=== PATIENT | female | born 1970 | race Caucasian/White ===

== ENCOUNTER → 2016-11-15 | Outpatient (CLI) | payer BC ==
--- NOTE | 2016-11-16 11:46 | MM ---
Reason for exam: screening (asymptomatic). Last mammogram was performed 1 year and 7 months ago. History: Patient is nulliparous. Family history of breast cancer in grandmother. Physical Findings: A clinical breast exam by your physician is recommended on an annual basis and results should be correlated with mammographic findings. MG Screening Mammo w CAD Bilateral CC and MLO view(s) were taken. Prior study comparison: April 25, 2015, bilateral MG screening mammo w CAD. January 28, 2014, bilateral MG screening mammo w CAD. The breast tissue is heterogeneously dense. This may lower the sensitivity of mammography. No significant changes when compared with prior studies. ASSESSMENT: Benign, BI-RAD 2 RECOMMENDATION: Routine screening mammogram of both breasts in 1 year.
== END | disposition home or self-care (01) ==
LOC: RADMAMWWP 13:11
PROVIDERS: ATTEND Obstetrics & Gynecology
DX: Z12.31 Encounter for screening mammogram for malignant neoplasm of breast (principal)

== ENCOUNTER → 2017-08-03 | Outpatient (CLI) | payer BC ==
--- NOTE | 2017-08-03 08:15 | US ---
EXAMINATION TYPE: US duplex aorta DATE OF EXAM: 08/03/2017 COMPARISON: NONE CLINICAL HISTORY: R22.1 Pulsatile Mass. Family history aneurysm EXAM MEASUREMENTS: Abdominal Aorta: Proximal: 1.8cm Mid: 1.3cm Distal: 1.3cm Bifurcation:1.5cm IMPRESSION: No evidence for abdominal aortic aneurysm
== END | disposition home or self-care (01) ==
LOC: RADUSWWP 07:24
PROVIDERS: ATTEND Family Medicine
DX: R22.1 Localized swelling, mass and lump, neck (principal)
CPT/HCPCS: 93979

== ENCOUNTER → 2018-11-30 | Outpatient (CLI) | payer BC ==
--- NOTE | 2018-11-30 08:46 | MM ---
Reason for exam: clinical finding. Last mammogram was performed 2 years ago. History: Patient is nulliparous. Family history of breast cancer in grandmother. Physical Findings: Nurse did not find any significant physical abnormalities on exam. MG Diagnostic Mammo w CAD [place] Bilateral CC and MLO view(s) were taken. Prior study comparison: November 15, 2016, bilateral MG screening mammo w CAD. April 25, 2015, bilateral MG screening mammo w CAD. January 28, 2014, bilateral MG screening mammo w CAD. The breast tissue is heterogeneously dense. This may lower the sensitivity of mammography. No suspicious abnormality. No significant new findings when compared with previous films. These results were verbally communicated with the patient and result sheet given to the patient on 11/30/18. ASSESSMENT: Negative, BI-RAD 1 RECOMMENDATION: Routine screening mammogram of both breasts in 1 year.
--- NOTE | 2018-11-30 08:47 | USB ---
Reason for exam: clinical finding. History: Patient is nulliparous. Family history of breast cancer in grandmother. US Breast Limited LT Left limited breast ultrasound including focal area of concern, retroareolar and axilla demonstrates no cystic or solid lesion seen. Multifocal dense tissue. These results were verbally communicated with the patient and result sheet given to the patient on 11/30/18. ASSESSMENT: Negative, BI-RAD 1 RECOMMENDATION: Routine screening mammogram of both breasts in 1 year. Manage patient on a clinical basis.
== END ==
LOC: RADMAMWWP 06:59
PROVIDERS: ATTEND Obstetrics & Gynecology
DX: N63.20 Unspecified lump in the left breast, unspecified quadrant (principal); N63.10 Unspecified lump in the right breast, unspecified quadrant
CPT/HCPCS: 77066

== ENCOUNTER 2019-06-11 08:26 | Day surgery (SDC) | payer BC ==
[2019-06-07 14:17] VITALS: BMI 32.8
[~2019-06-11 08:26] MED LIST: LACTATED RINGERS 1,000 ML IV SCH; LIDOCAINE 1% 20 ML VIAL (10MG/ML) FOR IV START INTRADERMA PRN
[2019-06-11] MEDS ORDERED: MIDAZOLAM 2 MG/2 ML VIAL ONE (08:57)
[2019-06-11] MEDS ORDERED: PROPOFOL 10 MG/ML 20 ML VIAL IV ONE (08:57)
[2019-06-11] MEDS ORDERED: fentaNYL (PF) 50 MCG/ML 2 ML AMP ONE (08:57)
[2019-06-11] MEDS ORDERED: LIDOCAINE 1% INJ 10MG/ML (20 ML MDV) ONE (08:57)
[2019-06-11 09:01] VITALS: TEMP 97
[2019-06-11 09:40] VITALS: RESP 16
--- NOTE | 2019-06-11 09:54 | P.PCN ---
Date of Procedure: 06/11/19 Description of Procedure: Brief history: Patient is a pleasant scheduled for an elective upper endoscopy as well as colonoscopy as a part of evaluation of evaluation of GERD and altered bowel function. Patient reports long-standing history of gastroesophageal reflux disease treated with lansoprazole daily famotidine added at bedtime. Previous EGD was performed as the instrument significant for hiatal hernia. She also reports change in bowel habits with loose watery stools occurring daily. Procedure performed: Esophagogastroduodenoscopy with biopsy Colonoscopy with polypectomy and biopsy Estimated blood loss: Minimal. Preoperative diagnosis: GERD, abdominal pain, change in bowel habits Anesthesia: MAC Procedure: After informed consent was obtained from the patient was brought into the endoscopy unit and IV sedation was administered by anesthesia under continuous monitoring. Initially upper endoscopy was done. The Olympus GF 190 video endoscope was inserted into the mouth and esophagus intubated without any difficulty and was gradually advanced into the stomach and duodenum and carefully examined. The bulb and second part of the duodenum appeared normal, with biopsies taken to rule out celiac disease. The scope was then withdrawn into the stomach adequately insufflated with air and upon careful examination the antrum and body, cardia and fundus appeared normal, with biopsies taken of mild scattered erythema in the antrum and body suggestive of mild gastritis to rule out Helicobacter pylori. The scope was then withdrawn into the esophagus. multiple gastric polyps suggestive of fundic gland polyps were noted with biopsies and a larger polyp removed with cold forcep polypectomy. The GE junction was located at 35 cm to the incisors and biopsied. 2 cm hiatal hernia noted. It appeared regular with no erythema erosions or ulcerations. Rest of the esophagus appeared normal, with mid esophageal biopsies taken in the setting of solid food dysphagia. Patient tolerated the procedure well. At this time the patient continued to remain sedation. Initial digital rectal examination was normal. Olympus CF 190 video colonoscope was then inserted into the rectum and gradually advanced to the cecum without any difficulty. Careful examination was performed as the scope was gradually being withdrawn. The prep was excellent. the terminal ileum appeared normal with biopsies taken. The cecum, ascending colon, transverse colon, descending colon, sigmoid colon and rectum appeared normal., With biopsies taken in the setting of altered bowel function. Diminutive 2 mm descending colon polyp removed with cold forcep polypectomy. Retroflexion was performed in the rectum and no lesions were noted. Patient tolerated the procedure well. Impression: 1. Mild gastritis antrum body, biopsied. Multiple gastric polyps (suggestive of fundic gland polyps) biopsied. Small hiatal hernia. Biopsies of the duodenum, GE junction and midesophagus. 2. Normal appearing colon from the rectum to cecum and normal appearing terminal ileum with random biopsies taken of the terminal ileum, right colon and left colon. Diminutive 2 mm descending colon polyp removed with cold forcep polypectomy. Recommendations: Findings of this examination were discussed with the patient as well as Her partner. Continue current medical management. Await pathology from biopsies and polypectomy. Follow-up in gastroenterology clinic as previously scheduled. Anticipate repeat colonoscopy in 5 years pending pathology from polypectomy.
[2019-06-11 09:55] VITALS: BP 121/86; PULSE 71
--- NOTE | 2019-06-17 07:32 | CDI ---
Outpatient Documentation Clarification Form Date: 06/17/19 CDS/.Cam Milling Machine Operator Name: Anna Montgomery Phone; If any questions, call Marlene Coats at [phone] Patient Name: Luanne Clayton Admit Date: 06/11/19 Discharge Date: 06/11/19 ATTENTION: [facility] Coding Staff appreciate you assistance in clarifying documentation. Please respond to the clarification below the line at the bottom and electronically sign. The [facility] Coding Staff with review the response and follow-up if needed. Please Note: Queries are made part of the Legal Health Record. If you have any questions, please contact the Food Mixer Repairer. Dear Dr. Zamudio, Please provide clarification as to how many polyps were removed and how they were removed. There is mention of a rectal polyp on the pathology report. There is no documentation for this polyp or how it was removed on the procedure note. Please clarify. Thank you for your kind consideration. COMPLETED MTDD
== END 2019-06-11 10:08 ==
LOC: ORWHC2ENDO 08:26
PROVIDERS: ATTEND Internal Medicine
DX: D12.8 Benign neoplasm of rectum (principal); K29.50 Unspecified chronic gastritis without bleeding; K31.7 Polyp of stomach and duodenum; K63.5 Polyp of colon; K44.9 Diaphragmatic hernia without obstruction or gangrene; K21.9 Gastro-esophageal reflux disease without esophagitis; I10 Essential (primary) hypertension; E78.5 Hyperlipidemia, unspecified; F41.9 Anxiety disorder, unspecified; F32.9 Major depressive disorder, single episode, unspecified; G47.33 Obstructive sleep apnea (adult) (pediatric); Z79.899 Other long term (current) drug therapy
CPT/HCPCS: 81025; 88305; 45380; 43239; J2250; J2001; J3010; J2704

== ENCOUNTER → 2022-01-19 | Outpatient (CLI) | payer BC ==
--- NOTE | 2022-01-24 17:54 | MM ---
Reason for Exam: Screening (asymptomatic). Last mammogram was performed 3 year(s) and 2 month(s) ago. Patient History: Menarche at age 18. Patient has no children. Paternal grandmother had breast cancer, left, at or over age 50. Last menstrual period: 01/03/2022 Risk Values: Sierra 5 year model risk: 0.9%. NCI Lifetime model risk: 9.2%. Prior Study Comparison: 04/25/2015 Bilateral Screening Mammogram, [facility]. 11/15/2016 Bilateral Screening Mammogram, [facility]. 11/30/2018 Bilateral Diagnostic Mammogram, [facility]. Tissue Density: The breast tissue is heterogeneously dense. This may lower the sensitivity of mammography. Findings: Analyzed By CAD. No significant change from prior exams. Overall Assessment: Negative, BI-RAD 1 Management: Screening Mammogram of both breasts in 1 year. 1. A clinical breast exam by your physician is recommended on an annual basis and results should be correlated with mammographic findings. 2. The patient should continue monthly self breast exams. 3. A negative mammogram should not preclude additional follow-up of suspicious palpable abnormalities. Electronically signed and approved by: Greg Fitzgerald M.D. Radiologist
== END | disposition home or self-care (01) ==
LOC: RADMAMWWP 16:01
PROVIDERS: ATTEND Obstetrics & Gynecology
DX: Z12.31 Encounter for screening mammogram for malignant neoplasm of breast (principal); Z80.3 Family history of malignant neoplasm of breast
CPT/HCPCS: 77063; 77067

== ENCOUNTER → 2022-02-17 | Outpatient (CLI) | payer BC ==
[2022-02-17 16:16] LABS: Basophils # (A) 0.03 X 10*3/uL (0.00-0.10); Basophils % (A) 0.5 %; Eosinophils # (A) 0.18 X 10*3/uL (0.04-0.35); Eosinophils % (A) 3.1 %; HCT 33.4 % (37.2-46.3); HGB 10.3 g/dL (12.0-15.0); Immature Grans, Automated 0.3 %; Lymphocytes # (A) 1.77 X 10*3/uL (0.90-5.00); Lymphocytes % (A) 30.2 %; MCH 24.6 pg (27.0-32.0); MCHC 30.8 g/dL (32.0-37.0); MCV 79.9 fL (80.0-97.0); Mean Platelet Volume 11.2 fL (9.5-12.2); Monocytes # (A) 0.55 X 10*3/uL (0.20-1.00); Monocytes % (A) 9.4 %; NRBC Per 100 WBC 0 /100 WBCS (0.0-0.0); Neutrophils # (A) 3.32 X 10*3/uL (1.80-7.70); Neutrophils % (A) 56.5 %; Platelet Count 170 X 10*3/uL (140-440); RBC 4.18 X 10*6/uL (4.10-5.20); RDW 17.8 % (11.5-14.5); WBC 5.87 X 10*3/uL (4.50-10.00)
== END | disposition home or self-care (01) ==
LOC: LABPAT 08:50
PROVIDERS: ATTEND Obstetrics & Gynecology
DX: Z01.812 Encounter for preprocedural laboratory examination (principal); N92.0 Excessive and frequent menstruation with regular cycle; N94.6 Dysmenorrhea, unspecified; I10 Essential (primary) hypertension
CPT/HCPCS: 85025

== ENCOUNTER 2022-02-22 07:17 | Day surgery (SDC) | payer BC ==
[2022-02-17 11:43] VITALS: BMI 32.8
[~2022-02-22 07:17] MED LIST changes: +DEXAMETHASONE SOD PHOSPHATE 4 MG/ML 1 ML VIAL IV ONE; +LIDOCAINE 1% (10MG/ML) FOR IV START INTRADERMA PRN; -LIDOCAINE 1% 20 ML VIAL (10MG/ML) FOR IV START INTRADERMA PRN; +METOCLOPRAMIDE 5 MG/ML 2 ML VIAL IVP PRN; +ONDANSETRON 4 MG/2 ML VIAL IVP ONE; +Pre Op ABX Message 1 EACH MISC MISCELLANE ONE; +SCOPOLAMINE 1 MG/72 HR PATCH TRANSDERM ONE
[2022-02-22] MEDS ORDERED: KETOROLAC 30 MG/ML 1 ML VIAL ONE (08:20)
[2022-02-22] MEDS ORDERED: MIDAZOLAM 2 MG/2 ML VIAL ONE (08:20)
[2022-02-22] MEDS ORDERED: SUCCINYLCHOLINE CHLORIDE 100 MG/5 ML SYR IV ONE (08:20)
[2022-02-22] MEDS ORDERED: LIDOCAINE 4% LTA KIT (4 ML) TOPICAL ONE (08:20)
[2022-02-22] MEDS ORDERED: PROPOFOL 10 MG/ML 20 ML VIAL IV ONE (08:20)
--- NOTE | 2022-02-22 09:14 | P.OP ---
Date of Procedure: 02/22/22 Preoperative Diagnosis: Menorrhagia, dysmenorrhea Postoperative Diagnosis: Same, normal-appearing endometrial cavity Procedure(s) Performed: Hysteroscopy, NovaSure endometrial ablation Anesthesia: ANAA Surgeon: Karina Dubose Estimated Blood Loss (ml): 5 IV fluids (ml): 600 Urine output (ml): 30 Pathology: none sent Condition: stable Disposition: PACU Description of Procedure: Patient is brought to the operating suite where a general anesthetic is administered without difficulty. She's placed in the dorsal lithotomy position. Urine hCG is negative. The appropriate timeout is performed to assure proper patient and procedural identification. Examination under anesthesia reveals a small mid position uterus. Adnexa negative bilaterally. The perineal body, cervix and vaginal vault were all prepped and draped in the usual sterile fashion. The bladder is drained for approximate 30 mL of clear yellow urine. The weighted speculum was placed into the vagina. Anterior lip of the cervix is grasped with a double-tooth tenaculum. There is initial difficulty in sounding the uterus, however eventually the uterus sounded to a depth of 6 cm. The cervix is gently and systematically dilated with Hanks dilators. The hyster oscope was placed and the cavity is infused with sterile saline and inspected. There are no intrauterine defects, polyps, fibroids, septa. The hysteroscope was removed. The NovaSure wand is then placed and seated. The array is limited to 2.5 cm. A depth of 5 cm is chosen further with. The wand is properly seated and the machine is enabled. For 25 seconds and a power of 69 W the procedure is carried out. This is felt to be a short procedure. The wand is removed and the hysteroscope is replaced. The cavity appears to be ablated in the lower uterine segment, the upper segment still appears to have viable tissue. However at this time the procedure is terminated and not repeated as per forming tube selector's suggestions. Instrumentation is removed from the vagina. The cervix is clean and dry. All sponge needle and enhancement counts are correct. Patient is brought back to recovery room in good condition with stable vital signs including a pulse of 53, blood pressure 132/88, 98% O2 saturation. Toradol is given prior to leaving the operative suite. Patient will follow-up with me in the office in 2 weeks.
[2022-02-22 09:19] VITALS: RESP 16; TEMP 96.9
[2022-02-22] MEDS: HYDROmorphone 0.5 MG/0.5 ML SYRINGE IVP PRN ×2 (09:24→09:37)
[2022-02-22 10:49] VITALS: BP 139/76; PULSE 65
== END 2022-02-22 11:14 | disposition home or self-care (01) ==
LOC: OR 07:17
PROVIDERS: ATTEND Obstetrics & Gynecology
DX: N92.0 Excessive and frequent menstruation with regular cycle (principal); N94.6 Dysmenorrhea, unspecified; D64.9 Anemia, unspecified; I10 Essential (primary) hypertension; Z90.49 Acquired absence of other specified parts of digestive tract; Z98.890 Other specified postprocedural states; Z82.49 Family history of ischemic heart disease and other diseases of the circulatory system; Z80.3 Family history of malignant neoplasm of breast; Z80.8 Family history of malignant neoplasm of other organs or systems; E78.5 Hyperlipidemia, unspecified; G47.33 Obstructive sleep apnea (adult) (pediatric); F32.A Depression, unspecified; Z79.899 Other long term (current) drug therapy; Z88.0 Allergy status to penicillin
CPT/HCPCS: 81025; 58563; J2250; J1100; J2405; J1885; J0330; J2704; J1170

== ENCOUNTER → 2023-12-19 | Outpatient (CLI) | payer OTHER ==
--- NOTE | 2023-12-21 11:25 | MM ---
Reason for Exam: Screening (asymptomatic). Last mammogram was performed 1 year(s) and 11 month(s) ago. Patient History: Menarche at age 18. Patient has no children. Paternal grandmother had breast cancer, left, at or over age 50. Risk Values: Sierra 5 year model risk: 1.0%. NCI Lifetime model risk: 8.9%. Prior Study Comparison: 11/15/2016 Bilateral Screening Mammogram, [facility]. 11/30/2018 Bilateral Diagnostic Mammogram, [facility]. 01/19/2022 Bilateral MG 3D screening mammo w/cad, [facility]. Tissue Density: The breasts are heterogeneously dense, which may obscure small masses. Findings: Analyzed By CAD. There is no suspicious group of microcalcifications or new suspicious mass in either breast. Benign appearing lymph nodes in the axilla. Benign calcifications. Overall Assessment: Benign, BI-RAD 2 Management: Screening Mammogram of both breasts in 1 year. . Patient should continue monthly self-breast exams. A clinical breast exam by your physician is recommended on an annual basis. This exam should not preclude additional follow-up of suspicious palpable abnormalities. Note on Sierra scores and lifetime risk: 1. A Sierra score greater than 3% is considered moderate risk. If this is the case, consider specialist referral to assess eligibility for a risk reducing agent. 2. If overall lifetime risk for the development of breast cancer is 20% or higher, the patient may qualify for future screening with alternating mammogram and breast MRI. Electronically signed and approved by: Jean Carlos Carrillo M.D. Radiologis
== END | disposition home or self-care (01) ==
LOC: RADMAMWWP 13:20
PROVIDERS: ATTEND Obstetrics & Gynecology Obstetrics
DX: Z12.31 Encounter for screening mammogram for malignant neoplasm of breast (principal); Z80.3 Family history of malignant neoplasm of breast
CPT/HCPCS: 77063; 77067

== ENCOUNTER → 2024-08-02 | Outpatient (CLI) | payer OTHER ==
--- NOTE | 2024-08-02 15:00 | XR ---
EXAMINATION TYPE: XR chest 2V DATE OF EXAM: 08/02/2024 2:09 PM COMPARISON: None CLINICAL INDICATION: Female, 54 years old with history of R05.9 COUGH; H TECHNIQUE: XR chest 2V Frontal and lateral views of the chest. FINDINGS: Lungs/Pleura: There is no evidence of pleural effusion, focal consolidation, or pneumothorax. Pulmonary vascularity: Unremarkable. Heart/mediastinum: Cardiomediastinal silhouette is unremarkable. Musculoskeletal: No acute osseous pathology. IMPRESSION: No acute cardiopulmonary disease/process. [facility], , 08/02/2024 2:58 PM
== END | disposition home or self-care (01) ==
LOC: LABWHC1 13:55
PROVIDERS: ATTEND Family Medicine
DX: R05.9 Cough, unspecified (principal)
CPT/HCPCS: 71046

== ENCOUNTER → 2024-09-04 | Outpatient (CLI) | payer OTHER ==
[2024-09-05 02:19] LABS: Basophils # (A) 0.03 X 10*3/uL (0.00-0.10); Basophils % (A) 0.5 %; Eosinophils # (A) 0.24 X 10*3/uL (0.04-0.35); HCT 39.6 % (37.2-46.3); HGB 12.2 g/dL (12.0-15.0); Lymphocytes # (A) 2.28 X 10*3/uL (0.90-5.00); Lymphocytes % (A) 37.7 %; MCH 26.1 pg (27.0-32.0); MCHC 30.8 g/dL (32.0-37.0); MCV 84.8 FL (80.0-97.0); Mean Platelet Volume 12.9 FL (9.5-12.2); Monocytes # (A) 0.45 X 10*3/uL (0.20-1.00); Monocytes % (A) 7.5 %; NRBC Per 100 WBC 0 X 10*3/uL (0.00-0.01); Neutrophils # (A) 3.03 X 10*3/uL (1.80-7.70); Neutrophils % (A) 50.1 %; Platelet Count 157 X 10*3/uL (140-440); RBC 4.67 X 10*6/uL (4.10-5.20); RDW 14.1 % (11.5-14.5); WBC 6.04 X 10*3/uL (4.50-10.00)
== END | disposition home or self-care (01) ==
LOC: LABWHC1 16:32
PROVIDERS: ATTEND Family Medicine
DX: D50.9 Iron deficiency anemia, unspecified (principal)
CPT/HCPCS: 36415; 85025

== ENCOUNTER → 2024-10-17 | Outpatient (CLI) | payer OTHER ==
--- NOTE | 2024-10-17 17:29 | MR ---
INDICATION: Patient age:Female; 54 years old; Reason for study: G25.0 TREMOR G43.829 MENSTRUAL MIGRAINE; [facility]. COMPARISON: None. TECHNIQUE: Multi planar, multi sequence imaging was performed through the brain without the administr ation of intravenous contrast. FINDINGS: The petty-white junctions, ventricular system, basal cisterns appear unremarkable. Left anterior middl e cranial fossa 2.1 x 0.7 cm T2 hyperintense lesion most consistent with an arachnoid cyst. Age-appro priate cerebral parenchymal volume. Diffusion-weighted imaging shows no evidence of restricted diffus ion to suggest acute/subacute infarct. Intracranial arterial flow voids are maintained. Midline struc tures show no abnormality. No suspicious FLAIR signal abnormalities. The susceptibility weighted imag es do not reveal any evidence for micro-hemorrhage. Incidental medial right frontal lobe developmenta l venous anomaly (series 501, image 453). The bone marrow signal is within normal limits. The globes are unremarkable. Mild mucosal thickening throughout the paranasal sinuses. IMPRESSION: 1. No evidence of acute/subacute infarct. 2. Small left middle cranial fossa arachnoid cyst. 3. Right frontal lobe developmental venous anomaly. [facility], , 10/17/2024 5:27 PM
== END | disposition home or self-care (01) ==
LOC: RADMRIMAIN 16:21
PROVIDERS: ATTEND Psychiatry & Neurology Neurology
DX: G25.0 Essential tremor (principal); G43.829 Menstrual migraine, not intractable, without status migrainosus; G93.0 Cerebral cysts
CPT/HCPCS: 70551

== ENCOUNTER → 2024-12-23 | Outpatient (CLI) | payer OTHER ==
[2024-12-23 14:00] VITALS: BP 137/85; PULSE 70; RESP 16; TEMP 98
--- NOTE | 2024-12-23 15:00 | P.SLEEP ---
History of Present Illness DATE: 12/23/2024 CONSULTATION/NEW PATIENT EVALUATION HISTORY OF PRESENT ILLNESS/SLEEP-WAKE EVALUATION: 54-year-old lady had been e valuated in the sleep center for possible obstructive sleep apnea hypopnea syndrome and insomnia. SLEEP SCHEDULE: Usually sleep schedule from 9 PM to 7 AM. FALLING ASLEEP: Patient has significant problems with falling asleep, although no TV in bedroom. DURING SLEEP: Patient sleeps on the side and stomach position, cannot sleep on the back position. Positive history of snoring and multiple awakenings from sleep with nocturia. Positive history of restless leg symptoms. Positive history of grinding teeth no history of hypnogogical hallucinations, sleep paralysis, or cataplexy. DURING THE DAY/WAKE STATE: In the morning patient wake up tired, has difficulties to pay attention, has problems with memory, concentration, irritability, depression, anxiety. [place] sleepiness scale is 1. Patient does not take naps. PAST MEDICAL HISTORY: Hypertension, iron deficiency anemia, hyperlipidemia, allergy, hayfever. PAST SURGICAL HISTORY: Appendectomy. MEDICATIONS: Please see below. SOCIAL HISTORY: Please see below. FAMILY HISTORY: Please see below. REVIEW OF SYSTEMS: Snoring, multiple awakenings from sleep. No fevers. No double vision. No recent chest pain. No shortness of breath. No abdominal pain. No bleeding episodes. No blood in urine. No seizure episodes. PHYSICAL EXAMINATION: GENERAL: A pleasant patient without any distress. VITAL SIGNS: Please see below, weight 204, BMI 33.4. HEENT: PERRLA, EOMI. Evaluation of oropharynx showed tongue protrudes midline, low position of soft palate Mallampati 3. NECK: Supple. No JVD. Thyroid is not palpable. 16 inches in circumference. LUNGS: Clear to percussion and to auscultation. Good air exchange. No wheezing or rhonchi. HEART: S1, S2 regular. No murmurs, gallops or rubs. ABDOMEN: Soft and nontender. Bowel sounds are present. No organomegaly appreciated. EXTREMITIES: No clubbing or cyanosis. LOAN ASSOCIATE: Awake, alert, and oriented x3. Cranial nerves 2 to 7 intact. There is no fasciculation or atrophy noted. No focal deficits observed. ASSESSMENT: 1. Snoring, multiple awakenings from sleep, low position of soft palate Mallampati 3, wide neck 16 inches in circumference. Obstructive sleep apnea hypopnea syndrome. 2. Psychophysiological insomnia and insomnia secondary to anxiety. 3. History of depression. 4. History of restless leg syndrome, on treatment with ropinirole. 5 hypertension. 6 . Iron deficiency anemia. 7. Hyperlipidemia. 8. Allergy and history of hayfever. 9 . Status post appendectomy. 10. Mild obesity, BMI 33.4. PLAN: 1. Polysomnography for evaluation of patient's breathing during sleep. 2. Following plan after reading sleep study. 3. I discussed with patient psychological decrease for insomnia including stimulus control, paradoxical intention, sleep restriction. Is much as possible bright light exposure in the morning preferably sunlight, no exposure to bluelight in the evening. 4. No driving if patient feels any sleepiness. Patient is aware of civil and criminal liability for unsafe driving. 5. Sleep hygiene with regular sleep time for 7.5 hours. 6. Watching and losing weight. Thank you very much for referring this patient for consultation. Sincerely, Jung Chambers MD, PhD, FAASM. Diplomat of [employer], Sleep Medicine Board by [employer] [facility] [place] cc: Solomon Callahan MD Past Medical History Past Medical History: GERD/Reflux, Hyperlipidemia, Hypertension Additional Past Medical History / Comment(s): insomnia History of Any Multi-Drug Resistant Organisms: None Reported Past Surgical History: Appendectomy, Orthopedic Surgery Additional Past Surgical History / Comment(s): Right ankle surgery X4, wisdom teeth. Past Anesthesia/Blood Transfusion Reactions: No Reported Reaction Past Psychological History: Anxiety, Depression Smoking Status: Never smoker Past Alcohol Use History: Occasional Past Drug Use History: Marijuana Additional Drug Use History / Comment(s): gummies to sleep - Past Family History Mother Family Medical History: No Reported History, Coronary Artery Disease (CAD), Diabetes Mellitus, Hyperlipidemia, Hypertension, Thyroid Disorder Additional Family Medical History / Comment(s): fibromyalgia, Insomnia, Anemia, restless legs, mental illness Father Family Medical History: Coronary Artery Disease (CAD), GERD/Reflux, Hyperlipidemia, Hypertension Additional Family Medical History / Comment(s): headaches, sinus headaches, Insomnia, Emphysema, restless legs Medications and Allergies Home Medications Medication Instructions Recorded Confirmed Type Escitalopram [Lexapro] 10 mg PO HS 02/17/22 02/17/22 History Ferrous Sulfate [Feosol] 325 mg PO DAILY 02/17/22 12/23/24 History Lansoprazole 30 mg PO HS 02/17/22 12/23/24 History Multivitamins, Thera [Multivitamin 1 tab PO DAILY 02/17/22 02/17/22 History (formulary)] QUEtiapine FUMARATE [SEROquel] 200 mg PO HS 02/17/22 02/17/22 History hydroCHLOROthiazide 12.5 mg PO DAILY 02/17/22 02/17/22 History valACYclovir HCL [Valtrex] 500 mg PO DAILY PRN 02/17/22 12/23/24 History Ergocalciferol [Vitamin D2 (1250 50,000 units PO DAILY 12/23/24 12/23/24 History Mcg = 32440 Iu)] Fluticasone Propionate [Flonase 1 spray EA NOSTRIL DAILY 12/23/24 12/23/24 History Allergy Relief] Rosuvastatin [Crestor] 10 mg PO DAILY 12/23/24 12/23/24 History lisinopriL [Zestril] 5 mg PO DAILY 12/23/24 12/23/24 History rOPINIRole HCL [Requip] 5 mg PO DAILY 12/23/24 12/23/24 History traZODone HCL [Desyrel] 50 mg PO DAILY 12/23/24 12/23/24 History Allergies Allergy/AdvReac Type Severity Reaction Status Date / Time Penicillins AdvReac YEAST Verified 02/17/22 11:30 INFECTION Physical Exam Vitals: Vital Signs Temp Pulse Resp BP Pulse Ox 12/23/24 13:59 98 F 70 16 137/85 97 Intake and Output 12/22/24 12/23/24 12/23/24 22:59 06:59 14:59 Other: Weight 92.533 kg Sleep Note - Sleep Data ESS Total: 1 - Sleep Note Sleep Note: Temperature: 98 F Pulse Rate: 70 Respiratory Rate: 16 Blood Pressure: 137/85 SpO2: 97 Height: 5 ft 5.5 in Weight: 92.533 kg BMI: Neck Circumference: 16
== END ==
LOC: 3 N SLEEP 13:43
PROVIDERS: ATTEND Internal Medicine
DX: G47.33 Obstructive sleep apnea (adult) (pediatric) (principal); I10 Essential (primary) hypertension; D50.9 Iron deficiency anemia, unspecified; E78.5 Hyperlipidemia, unspecified; E66.9 Obesity, unspecified; Z86.59 Personal history of other mental and behavioral disorders; Z88.8 Allergy status to other drugs, medicaments and biological substances; Z98.890 Other specified postprocedural states; Z86.69 Personal history of other diseases of the nervous system and sense organs; Z68.33 Body mass index [BMI] 33.0-33.9, adult; Z88.0 Allergy status to penicillin
CPT/HCPCS: 99211